=== PATIENT | female | born 1975 | race Caucasian/White ===

== ENCOUNTER 2016-06-22 15:26 | Inpatient (IN) | payer OTHER ==
--- NOTE | ~2016-06-22 | PN ---
Unit #: [id number] #: [id number] Patient: OBED ABERNATHY [id number] [facility] [address] [place] [address] [id number] MR#: [id number] NAME: OBED ABERNATHY. ROOM: P122 Age: 40 Sex: F Admission Date: 06/22/2016 : 1975 Attending Physician: Sammi Downs M.D. Admitting Physician: Sammi Downs M.D. Primary Care Physician: Generic Doctor Not In System [facility] PROGRESS NOTES DATE 06/24/2016 DISCUSSION Ms. Abernathy is a 40-year-old white female with mood disorder and psychosis who was seen today and chart was reviewed and case was discussed with the staff. She has been anxious, withdrawn though has not shown any agitation, irritability and has been cooperative with treatment recommendations and has been taking medications and tolerating them fairly well with no reported side effects. MENTAL STATUS EXAMINATION Young white female who was casually dressed with fair personal hygiene and appears to be in no acute distress or discomfort. She was awake and alert on interaction with intact orientation. Her mood was anxious with congruent affect. She denies any suicidal or homicidal ideations. Her insight and judgement remains slightly impaired. TREATMENT PLAN 1. Will continue on current medications and treatment protocol. Will monitor her response to the medication and make further adjustments as needed. 2. Will continue to follow up. Dictated by... Sammi Downs M.D. IAA/giovana TD: 06/25/2016 22:38 JOB #: [id number] Unit #: [id number] #: [id number] Patient: OBED ABERNATHY [facility] PROGRESS NOTES X Sammi Downs MD X PROGRESS NOTE
--- NOTE | ~2016-06-22 | HP ---
Unit #: [id number] #: [id number] Patient: OBED EUBANKS [id number] [place] [address] [id number] I MR#: [id number] NAME: OBED EUBANKS. ROOM: [facility] Age: 40 Sex: F Admission Date: 06/22/2016 : 1975 Attending Physician: Sammi Downs M.D. Admitting Physician: Sammi Downs M.D. Primary Care Physician: Generic Doctor Not In System HISTORY AND PHYSICAL HISTORY OF PRESENT ILLNESS The patient is a 40-year-old female admitted to [address] [place] [address] on 06/22/2016 for psychotic behavior. PAST MEDICAL HISTORY Chronic obstructive pulmonary disease PAST SURGICAL HISTORY 1. Appendectomy 2. Bilateral tubal ligation SOCIAL HISTORY The patient lives with her . She refused to answer questions about alcohol, tobacco and drug use. FAMILY MEDICAL HISTORY Noncontributory. ALLERGIES Shell fish and iodine. CURRENT MEDICATIONS Zyprexa REVIEW OF SYSTEMS CONSTITUTIONAL: No fever or chills. HEENT: Denies any sore throat, ear pain or runny nose. CARDIOVASCULAR: Denies chest pain, irregular heart rhythm or palpitations. CHEST: Denies shortness of breath or cough. No hemoptysis. GASTROINTESTINAL: Denies nausea, vomiting, diarrhea or chronic constipation. ENDOCRINE: Denies history of increased thirst or urination. No recent significant weight loss or gain. GENITOURINARY: Denies dysuria, frequency, or hematuria. SKIN: Denies any rashes. HEMATOLOGIC: Denies history of increased bleeding or bruising. MUSCULOSKELETAL: Denies any hot, swollen joints. No generalized muscle pain. NEUROLOGIC: Denies problems with vision or speech. No frequent, severe headaches. No numbness, tingling or weakness in any extremities. Denies loss of bladder or bowel control. Unit #: [id number] #: [id number] Patient: OBED EUBANKS PHYSICAL EXAM GENERAL: She is awake, alert and oriented in no acute distress. VITAL SIGNS: Temperature 97.0, heart rate 90, respiration 18, blood pressure 142/90. HEIGHT: 5'3". WEIGHT: 150 pounds. SKIN: Warm and dry without rash or lesion. HEENT: Normocephalic. TMs not viewed. Oral and nasal passages clear. Conjunctivae clear. PERRLA. EOMs intact. NECK: Supple without lymphadenopathy or thyromegaly. HEART: Regular rate and rhythm without murmur. PULMONARY: Wheezing in all lung beaver. ABDOMEN: Soft, nontender. : Not done. EXTREMITIES: No evidence of cyanosis, clubbing or edema. Moves all without focal deficit. NEUROLOGICAL: Grossly within normal limits. Cranial Nerves: II: Visual beaver are intact. III, IV AND : Extraocular movements are intact. Pupils are equal, round and reactive to light. V: Facial sensation is grossly normal. VII: Facial movements and expression are normal. VIII: Auditory acuity grossly intact. IX, X: Uvula is midline. Phonation is normal. XI: Patient shrugs shoulders and turns head normally. XII: Tongue protrudes in the midline. Sensory and Motor Function: Sensory and motor sensation is grossly normal. Motor: moves all extremities well. IMPRESSION 1. Psychiatric admission. 2. Chronic obstructive pulmonary disease. RECOMMENDATIONS Psychiatric per psychiatrist. MEDICAL: No contraindication to participate in facility activities. MEDICAL PROGNOSIS Good. MEDICAL CONDITION Stable. Dictated by... Brad Martin/magdalena TD: 06/23/2016 02:18 JOB #: [id number] Unit #: [id number] #: [id number] Patient: OBED EUBANKS HISTORY AND PHYSICAL X DUSTIN ROSS APRN HISTORY AND PHYSICAL
--- NOTE | ~2016-06-22 | PN ---
Unit #: [id number] #: [id number] Patient: OBED ABERNATHY [id number] [facility] [address] [place] [address] [id number] MR#: [id number] NAME: OBED ABERNATHY. ROOM: P122 Age: 40 Sex: F Admission Date: 06/22/2016 : 1975 Attending Physician: Sammi Downs M.D. Admitting Physician: Sammi Downs M.D. Primary Care Physician: Generic Doctor Not In System [facility] PROGRESS NOTES DATE OF SERVICE 06/25/2016 DISCUSSION Ms. Abernathy is a 40-year-old white female who was seen today. Chart was reviewed and case was discussed with the staff. She has been anxious and withdrawn though has not shown any agitation or irritability and has been cooperative with treatment recommendations though has been exhibiting persistent psychosis with bizarre behavior and significant thought-blocking. MENTAL STATUS EXAMINATION Young white male who is casually dressed with fair personal hygiene, appears to be in no acute distress or discomfort. The patient was awake and alert on interaction with intact orientation. Her mood is anxious with congruent affect. She denies any suicidal or homicidal ideations and also denies any auditory or visual hallucinations. Her insight and judgment remain slightly impaired. TREATMENT PLAN 1. We will continue her on her current medications and treatment protocol. We will monitor her response to the medications and make further adjustments as needed. 2. We will continue to follow up. Dictated by... Sammi Downs M.D. IAA/bzg TD: 06/26/2016 12:54 JOB #: [id number] Unit #: [id number] #: [id number] Patient: OBED ABERNATHY [facility] PROGRESS NOTES X Sammi Downs MD PROGRESS NOTE
--- NOTE | ~2016-06-22 | PN ---
Unit #: [id number] #: [id number] Patient: OBED ABERNATHY [id number] [facility] [address] [place] [address] [id number] I MR#: [id number] NAME: OBED ABERNATHY. ROOM: P122 Age: 40 Sex: F Admission Date: 06/22/2016 : 1975 Attending Physician: Sammi Downs M.D. Admitting Physician: Sammi Downs M.D. Primary Care Physician: Orville Doctor Not In System [facility] PROGRESS NOTES DATE 06/26/2016 DISCUSSION Ms. Abernathy is a 40-year-old white female who was seen today and chart was reviewed and case was discussed with the staff. She has been anxious, withdrawn though has not shown any agitation, irritability or behavioral problems and has been cooperative with treatment recommendations. She has been taking medications and tolerating them fairly well with no reported side effects. MENTAL STATUS EXAMINATION Young white female who was casually dressed with fair personal hygiene, appears to be in no acute distress or discomfort. She was awake and alert on interaction with intact orientation. Her mood was anxious with congruent affect. She denies any suicidal or homicidal ideations. Her insight and judgement remains slightly impaired. TREATMENT PLAN 1. We will continue her on her current medications and treatment protocol. We will monitor her response to the medication and make further adjustments as needed. 2. We will continue to follow up. Dictated by... Jacoby Saldivar/magdalena TD: 06/27/2016 00:52 JOB #: [id number] Unit #: [id number] #: [id number] Patient: OBED ABERNATHY [facility] PROGRESS NOTES X Sammi Downs MD PROGRESS NOTE
--- NOTE | ~2016-06-22 | PN ---
Unit #: [id number] #: [id number] Patient: OBED ABERNATHY [id number] [facility] [address] [place] [address] [id number] MR#: [id number] NAME: OBED ABERNATHY. ROOM: P122 Age: 40 Sex: F Admission Date: 06/22/2016 : 1975 Attending Physician: Sammi Downs M.D. Admitting Physician: Sammi Downs M.D. Primary Care Physician: Orville Doctor Not In System [facility] PROGRESS NOTES DATE 06/29/2016 DISCUSSION Ms. Abernathy is a 40-year-old white female who was seen today and chart was reviewed and case was discussed with the staff who report the patient has been anxious, withdrawn, disorganized and seclusive to herself with bizarre behavior and thought blocking and persistent paranoia though she has not shown any agitation or aggression. Meanwhile, she has been taking medications and tolerating them fairly well. MENTAL STATUS EXAMINATION Young white female who was casually dressed with fair personal hygiene, appears to be in no acute distress or discomfort. She was awake and alert on interaction with intact orientation. Her mood was anxious with congruent affect. Her speech was slow and restricted in content. Her thought processes were disorganized with some looseness of associations and paranoid ideations and thought blocking. Her insight and judgement remains significantly impaired. TREATMENT PLAN 1. We will continue her on her current medications and treatment protocol. We will monitor her response to the medication and make further adjustments as needed. 2. We will continue to follow up. Dictated by... Jacoby Saldivar/magdalena TD: 07/01/2016 03:29 JOB #: [id number] Unit #: [id number] #: [id number] Patient: OBED ABERNATHY [facility] PROGRESS NOTES X Sammi Downs MD PROGRESS NOTE
--- NOTE | ~2016-06-22 | PA ---
Unit #: [id number] #: [id number] Patient: OBED ABERNATHY [id number] [facility] [address] [place] [address] [id number] I MR#: [id number] NAME: OBED ABERNATHY. ROOM: [facility] Age: 40 Sex: F Admission Date: 06/22/2016 : 1975 Date of Assessment: Attending Physician: Sammi Downs M.D. Admitting Physician: Sammi Downs M.D. Primary Care Physician: Generic Doctor Not In System PSYCHIATRIC ASSESSMENT DATE OF SERVICE 06/22/2016. IDENTIFYING DATA Ms. Abernathy is a 40-year-old single white female, who is a resident of [place], [place], and was transferred to from [facility]. CHIEF COMPLAINT "I've not been doing good." HISTORY OF PRESENT ILLNESS Ms. Abernathy is a 40-year-old white female with a history of chronic mental illness, who is known to me from previous encounter and was transferred to us from [facility] Emergency Room, where she presented with acute psychosis as noticed by the ER physician and was placed on 72 hours hold. On 06/22/2016, the patient refused to cooperate with assessment and informed the bull rider that she would only give the bull rider a positive answer to the questions that were asked and the patient then responded with "nope" when the bull rider inquired about suicidal ideation and also responded about previously being at [facility] and the patient informed the bull rider that she was there under my care and the bull rider tried to ask condition of assessment question, but the patient was seen to be very guarded and paranoid and delusional and the ER doctor reported that she has been rambling since admitted to the hospital and that she has been completely out of touch with reality and her responses do not match with the questions that are asked, and when asked about any symptoms, the patient will give irrelevant information and the patient was alert and awake, and her drug screen was positive for marijuana with no other drugs being present and was seen to be acutely psychotic and danger to self and others and as such, a recommendation for inpatient level of care was made and the patient was medically cleared and then was transferred to us. SUBSTANCE ABUSE HISTORY The patient reports a history of cannabis abuse, but denies any other drug abuse. PAST PSYCHIATRIC HISTORY The patient has had a history of inpatient psychiatric hospitalization at [facility] and has been diagnosed and treated with schizoaffective disorder. Review of the medical records indicate that she is supposed to be on Zyprexa, but apparently has been noncompliant with the medication and as such, has been decompensating. Unit #: [id number] #: [id number] Patient: OBED ABERNATHY PAST MEDICAL HISTORY The patient's medical history is significant for COPD and scoliosis. ALLERGIES Iodine. PERSONAL AND SOCIAL HISTORY A 40-year-old white female, who reports that she is and lives at home with her and has fairly decent social support system. MENTAL STATUS EXAMINATION Young white female, who was casually dressed with marginal personal hygiene, appears to be in no acute distress or discomfort. She was awake and alert on interaction with intact orientation to time, place, and person. Her mood was anxious and depressed with a congruent affect. Her speech was slow and restricted in content. Her thought processes were disorganized with some looseness of associations and paranoid ideations. Her insight and judgment remain significantly impaired. DIAGNOSTIC IMPRESSION Psychiatric: Schizoaffective disorder, bipolar type, most recent episode depressed, recurrent, moderate, with psychosis. Medical: Scoliosis and chronic obstructive pulmonary disease. Stressors: Moderate psychosocial stressors. TREATMENT PLAN 1. The patient has presented with a history of substance abuse and mood disorder and has been decompensating and will need inpatient hospitalization for safety and stabilization. We will start her back on her home medications and we will adjust the medications and monitor response. 2. Supportive therapy was provided to the patient. 3. Safe, structured, and nourishing environment will be provided. ESTIMATED LENGTH OF STAY 4 to 5 days. ABILITY TO HELP SELF Limited. WILLINGNESS TO HELP SELF The patient appears to be willing to help self. STRENGTHS 1. Communicative. 2. Cooperative. PROBLEMS 1. Chronic dysphoric symptoms. 2. Chronic chemical dependency. 3. Poor social support system. DISCHARGE CRITERIA This will be contingent upon the patient's ability to show resolution of her depression and psychosis and her ability to stay safe to herself and others, particularly after discharge from the hospital. Unit #: [id number] #: [id number] Patient: ABERNATHYOBED D Dictated by..Celsa Downs M.D. LAMAR/kinga TD: 06/23/2016 10:29 JOB #: [id number] PSYCHIATRIC ASSESSMENT X Sammi Downs MD PSYCHIATRIC ASSESSMENT
--- NOTE | ~2016-06-22 | DS ---
Unit #: [id number] #: [id number] [facility] [id number] [facility] [address] [place] [address] [id number] I MR#: [id number] NAME: OBED ABERNATHY. ROOM: [facility] Age: 40 Sex: F Admission Date: 06/22/2016 : 1975 Discharge Date: 07/01/2016 Attending Physician: Sammi Downs M.D. Primary Care Physician: Generic Doctor Not In System DISCHARGE SUMMARY IDENTIFYING DATA Ms. Abernathy is a 40-year-old single white female who is resident of [place], [place] and was transferred to from [facility]. DISCHARGE DIAGNOSES Psychiatric: Schizoaffective disorder, bipolar type, most recent episode depressed, recurrent, moderate, with psychosis. Medical: Scoliosis, chronic obstructive pulmonary disease. Stressors: Moderate psychosocial stressors. HISTORY OF PRESENT ILLNESS Please see initial psychiatric evaluation for details. PAST PSYCHIATRIC HISTORY Please see initial psychiatric evaluation for details. PAST MEDICAL HISTORY Please see initial psychiatric evaluation for details. HOSPITAL COURSE The patient was admitted to the adult psychiatric unit at [facility] and was oriented to the hospital environment. Routine p.r.n. medications were initiated, and she was started back on her home medications and medications were adjusted and she was started back on her home medication from previous medical records particularly her Zyprexa and the dosage was increased to 20 mg a day with good tolerability and therapeutic response followed by which, it was decided that she will be discharged home and will continue treatment on an outpatient basis. DISCHARGE MEDICATIONS Zyprexa 20 mg at bedtime for depression. DISCHARGE CONDITION Stable. PROGNOSIS Fair. Dictated by... Sammi Downs M.D. IAA/modl Unit #: [id number] #: [id number] Patient: OBED ABERANTHY TD: 07/01/2016 22:35 JOB #: [id number] DISCHARGE SUMMARY X Sammi Downs MD X DISCHARGE SUMMARY
--- NOTE | ~2016-06-22 | PN ---
Unit #: [id number] #: [id number] Patient: OBED ABERNATHY [id number] [facility] [address] [place] [address] [id number] I MR#: [id number] NAME: OBED ABERNATHY. ROOM: P122 Age: 40 Sex: F Admission Date: 06/22/2016 : 1975 Attending Physician: Sammi Downs M.D. Admitting Physician: Sammi Downs M.D. Primary Care Physician: Orville Doctor Not In System [facility] PROGRESS NOTES DATE OF SERVICE: 06/30/2016 SUBJECTIVE Ms. Abernathy is a 40-year-old white female who was seen today and chart was reviewed, and case was discussed with the staff. She has been anxious, withdrawn, disorganized with bizarre behavior and rather very seclusive to herself. Meanwhile, she has been taking medications and tolerating them fairly well with no reported side effects. MENTAL STATUS EXAMINATION Young white female who was casually dressed with fair personal hygiene, appears to be in no acute distress or discomfort. She was awake and alert on interaction with intact orientation. Her mood was anxious with a congruent affect. She denies any suicidal or homicidal ideations, and also denies any auditory or visual hallucinations. Her insight and judgment remain slightly impaired. TREATMENT PLAN 1. We will continue on her current medications and treatment protocol. We will monitor her response to medications and make further adjustments as needed. 2. We will continue to follow up. Dictated by... Jacoby Saldivar/kinga TD: 07/01/2016 02:27 JOB #: [id number] [facility] PROGRESS NOTES X Sammi Downs MD PROGRESS NOTE
--- NOTE | ~2016-06-22 | PN ---
Unit #: [id number] #: [id number] Patient: OBED ABERNATHY [id number] [facility] [address] [place] [address] [id number] MR#: [id number] NAME: OBED ABERNATHY. ROOM: P122 Age: 40 Sex: F Admission Date: 06/22/2016 : 1975 Attending Physician: Sammi Downs M.D. Admitting Physician: Sammi Downs M.D. Primary Care Physician: Orville Doctor Not In System [facility] PROGRESS NOTES DATE 06/27/2016 DISCUSSION Ms. Abernathy is a 40-year-old white female who was seen today and chart was reviewed and case was discussed with the staff. She has been anxious, withdrawn, disorganized and seclusive to herself with blunted affect, minimal interaction and poor eye contact. Meanwhile, she has been taking medications and tolerating them fairly well with no reported side effects. MENTAL STATUS EXAMINATION Young white female who was casually dressed with fair personal hygiene and appears to be in no acute distress or discomfort. She was awake and alert with impaired attention and concentration. Her mood was anxious with congruent affect. Her speech is slow and restricted in content. Her thought processes were disorganized with some looseness of associations and paranoid ideations and delusional behavior. Her insight and judgement remains significantly impaired. TREATMENT PLAN 1. Will continue on current medications and treatment protocol. Will monitor her response and make further adjustments as needed. 2. We will continue to follow up. Dictated by... Jacoby Saldivar/giovana TD: 06/27/2016 17:48 JOB #: [id number] Unit #: [id number] #: [id number] Patient: OBED ABERNATHY [facility] PROGRESS NOTES X Sammi Downs MD PROGRESS NOTE
--- NOTE | ~2016-06-22 | PN ---
Unit #: [id number] #: [id number] Patient: OBED ABERNAHTY [id number] [facility] [address] [place] [address] [id number] MR#: [id number] NAME: OBED ABERNATHY. ROOM: P122 Age: 40 Sex: F Admission Date: 06/22/2016 : 1975 Attending Physician: Sammi Downs M.D. Admitting Physician: Sammi Downs M.D. Primary Care Physician: Orville Doctor Not In System [facility] PROGRESS NOTES DATE June 23, 2016 DISCUSSION Ms. Abernathy is a 40-year-old white female, who was seen today and chart was reviewed and the case was discussed with the staff. The patient has been anxious, withdrawn, but has not shown any agitation, or irritability and has been cooperative with the treatment recommendations. He has been taking the medications and tolerating them fairly well with no reported side effects. MENTAL STATUS EXAMINATION Young white female, who was casually dressed with fair personal hygiene and appears to be in no acute distress or discomfort. The patient was awake and alert with impaired attention and concentration. Her mood was anxious with a congruent affect. Her speech is slow and restricted in content. Her thought processes are disorganized with some looseness of associations and paranoid ideations. Her insight and judgment remain significantly impaired. TREATMENT PLAN 1. We will continue her on her current medications and treatment protocol, and will monitor her response to the medications, and make further adjustments as needed. 2. We will continue to followup. Dictated by... Jacoby Saldivar/fareed TD: 06/25/2016 05:10 JOB #: [id number] Unit #: [id number] #: [id number] Patient: OBED ABERNATHY [facility] PROGRESS NOTES X Sammi Downs MD PROGRESS NOTE
--- NOTE | ~2016-06-22 | PN ---
Unit #: [id number] #: [id number] Patient: OBED ABERNATHY [id number] [facility] [address] [place] [address] [id number] MR#: [id number] NAME: OBED ABERNATHY. ROOM: P122 Age: 40 Sex: F Admission Date: 06/22/2016 : 1975 Attending Physician: Sammi Downs M.D. Admitting Physician: Jacoby Saldivar PROGRESS NOTES DATE OF SERVICE: 06/28/2016 SUBJECTIVE Ms. Abernathy is a 40-year-old white female who was seen today and chart was reviewed, and case was discussed with the staff. She has been doing fairly well with no agitation, irritability, and has been seclusive to herself with bizarre behavior and disorganized thoughts and speech. Meanwhile, she has been taking the medications and tolerating them fairly well. MENTAL STATUS EXAMINATION Young white female who was casually dressed with fair personal hygiene, appears to be in no acute distress or discomfort. She was awake and alert with impaired attention and concentration. Her mood was anxious with a congruent affect. Her speech was slow and restricted in content. Her thought processes were disorganized with some looseness of associations. Her insight and judgment remain significantly impaired. TREATMENT PLAN 1. We will continue on her current medications and treatment protocol. We will monitor her response and make further adjustments as needed. 2. We will continue to follow up. Dictated by... Jacoby Saldivar/kinga TD: 06/28/2016 13:23 JOB #: [id number] [facility] PROGRESS NOTES X Sammi Downs MD PROGRESS NOTE
[~2016-06-22 15:26] MED LIST: ALBUTEROL17 GM INH; AMOXICILLIN PO; AMOXICILLIN500 M1 PO; AURODEX EAR DRO15 ML OT; BACITRACIN3.5 G1 OP; CIPRODEX OTIC7.5 ML OT; COLY-MYCIN S EAR5 ML AS; ERYTHROMYCIN O3.5 GM OD; FLEXERIL PO; FLEXERIL10 MG PO; IBUPROFEN PO; KEFLEX500 M1 PO; LORTAB 7.5-5001 TAB PO; MEDROL PO; MOBIC PO; NASONEX17 GM; PAXIL PO; PHENERGAN12.5 MG/SU RC; PREDNISONE PO; ROBAXIN; VIBRAMYCIN100 M1 PO; VICODIN 5/500 T1 TAB PO; VISTARIL50 MG PO; ZANTAC PO; ZANTAC150 MG PO; ZYPREXA PO
[2016-06-23 09:49] LABS: BASOPHIL# 0.1 X10e3 (0-0.3); BASOPHIL% 0.9 % (0-2.5); EOSINOPHIL# 0.3 X10e3 (0-0.7); EOSINOPHIL% 3.5 % (0.0-7.0); HEMATOCRIT 38.4 % (35.0-45.0); HEMOGLOBIN 12.1 gm/dL (12.0-16.0); LYMPHOCYTE% 24.5 % (17.0-45.0); MEAN CELL VOLUME 80.5 FL (83-96); MEAN CORPUSCULAR HEMOGLOBIN 25.4 PG (28-34); MEAN CORPUSCULAR HGB CONC 31.6 g/dL (30-36); MEAN PLATELET VOLUME 10.2 FL (6.5-11.5); MONOCYTE# 0.7 X10e3 (0-1.0); MONOCYTE% 8.8 % (3.0-12.0); NEUTROPHIL# 5.1 X10e3 (1.5-7.1); NEUTROPHIL% 62.3 % (40-75); PLATELET COUNT 247 X10e3 (140-420); RED BLOOD COUNT 4.77 X10e (3.90-5.30); WHITE BLOOD COUNT 8.1 X10e3 (4.0-10.5)
[2016-06-23 09:51] LABS: ALBUMIN SERUM 3.6 g/dL (3.5-5.0); ALKALINE PHOSPHATASE 51 U/L (32-92); ALT (SGPT) 16 U/L (10-40); AST (SGOT) 18 U/L (10-42); BILIRUBIN,TOTAL 0.5 mg/dL (0.2-2.0); BLOOD UREA NITROGEN 9 mg/dL (9-23); CALCIUM SERUM 8.7 mg/dL (8.4-10.2); CARBON DIOXIDE 25 mmol/L (22-31); CHLORIDE 106 mmol/L (100-111); CREATININE SERUM 0.6 mg/dL (0.6-1.4); DIFF IND NO; GLOM FILT RATE Estimated ABOVE60 mL/min (>60); GLUCOSE FASTING 91 mg/dL (70-110); POTASSIUM 4.1 mmol/L (3.5-5.1); PROTEIN TOTAL SERUM 6.1 g/dL (6.0-8.3); SODIUM 137 mmol/L (135-145)
== END 2016-07-01 15:15 | disposition home or self-care (01) | DRG 885 ==
LOC: P1S 15:26
PROVIDERS: Psychiatry & Neurology Psychiatry
DX: F25.0 Schizoaffective disorder, bipolar type (principal); F31.32 Bipolar disorder, current episode depressed, moderate; F29 Unspecified psychosis not due to a substance or known physiological condition; M41.9 Scoliosis, unspecified; J44.9 Chronic obstructive pulmonary disease, unspecified
CPT/HCPCS: 80053; 85025

== ENCOUNTER 2016-10-01 01:08 | Emergency (ER) | payer OTHER ==
[2016-10-01] MEDS ORDERED: BREO ELLIPTA 11 EACH INH (01:20)
[2016-10-01] MEDS ORDERED: ACID REFLUX (01:20)
[2016-10-01] MEDS ORDERED: ZYPREXA PO (01:21)
[2016-10-01] MEDS ORDERED: ALBUTEROL17 GM INH (01:21)
== END 2016-10-01 01:59 | disposition home or self-care (01) ==
LOC: SED 01:08
DX: S09.90XA Unspecified injury of head, initial encounter (principal); S16.1XXA Strain of muscle, fascia and tendon at neck level, initial encounter; F17.200 Nicotine dependence, unspecified, uncomplicated; Z88.8 Allergy status to other drugs, medicaments and biological substances; Z79.899 Other long term (current) drug therapy; X58.XXXA Exposure to other specified factors, initial encounter; Y92.89 Other specified places as the place of occurrence of the external cause
CPT/HCPCS: 99283

== ENCOUNTER 2016-10-14 23:00 | Inpatient (IN) | payer OTHER ==
--- NOTE | ~2016-10-14 | PN ---
Unit #: [id number] #: [id number] Patient: OBED EUBANKS [id number] [facility] [address] [place] [address] [id number] MR#: [id number] NAME: OBED EUBANKS. ROOM: P131 Age: 41 Sex: F Admission Date: 10/15/2016 : 1975 Attending Physician: Sammi Downs M.D. Admitting Physician: Sammi Downs M.D. Primary Care Physician: Primary Care Physician Lyly BELLE NOTES DATE 10/19/2016 DISCUSSION Ms. Eubanks is a 41-year-old white female who was seen today and chart was reviewed and case was discussed with the staff. She has been anxious, withdrawn and rather seclusive to herself and has been exhibiting some persistent depressive symptoms. Meanwhile, she has been talking medications and tolerating them fairly well with no reported side effects. MENTAL STATUS EXAMINATION Middle-aged white female who was casually dressed with fair personal hygiene, appears to be in no acute distress or discomfort. She was awake and alert on interaction with intact orientation. Her mood was anxious with congruent affect. She denies any suicidal or homicidal ideations. Her insight and judgement remains slightly impaired. TREATMENT PLAN 1. We will continue her on her current medications and treatment protocol. We will monitor her response to the medication and make further adjustments as needed. 2. We will continue to follow up. Dictated by... Jacoby Saldivar/magdalena TD: 10/22/2016 01:02 JOB #: [id number] Unit #: [id number] #: [id number] Patient: OBED EUBANKS HECTOR PROGRESS NOTES Page 1 of 1 X Sammi Downs MD PROGRESS NOTE
--- NOTE | ~2016-10-14 | PN ---
Unit #: [id number] #: [id number] Patient: OBED EUBANKS [id number] [facility] [address] [place] [address] [id number] I MR#: [id number] NAME: OBED EUBANKS. ROOM: P131 Age: 41 Sex: F Admission Date: 10/15/2016 : 1975 Attending Physician: Sammi Downs M.D. Admitting Physician: Sammi Downs M.D. Primary Care Physician: Primary Care Physician Lyly BELLE NOTES DATE 10/21/2016 DISCUSSION Ms. Eubanks is a 41-year-old white female with mood disorder and psychosis who was seen today and chart was reviewed and case was discussed with the staff. She remains anxious, withdrawn, depressed and rather seclusive to herself. Meanwhile, she has been cooperative with treatment recommendations and has been taking medications and tolerating them fairly well with no reported side effects. MENTAL STATUS EXAMINATION Middle-aged white female who was casually dressed with fair personal hygiene and appears to be in no acute distress or discomfort. She was awake and alert on interaction with intact orientation. Her mood was anxious and depressed with congruent affect. She denies any current suicidal or homicidal ideation and also denies any auditory or visual hallucinations. Her insight and judgement remains slightly impaired. TREATMENT PLAN 1. Will continue on current medications and treatment protocol and will monitor response and make further adjustments as needed. 2. Will continue to follow up. Dictated by... Jacoby Saldivar/giovana TD: 10/22/2016 18:01 JOB #: [id number] Unit #: [id number] #: [id number] Patient: OBED EBUANKS HECTOR BELLE NOTES Page 1 of 1 X Sammi Downs MD PROGRESS NOTE
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
--- NOTE | ~2016-10-14 | HP ---
Unit #: [id number] #: [id number] Patient: CRIS EUBANKS [id number] [place] [address] [id number] I MR#: [id number] NAME: CRIS EUBANKS. ROOM: 31 Age: 41 Sex: F Admission Date: 10/15/2016 : 1975 Attending Physician: Sammi Downs M.D. Admitting Physician: Sammi Downs M.D. Primary Care Physician: No Primary Care Physician HISTORY AND PHYSICAL HISTORY OF PRESENT ILLNESS Cris is a 41-year-old admitted to [address] [place] [address] with psychotic behavior. She is a poor historian so her history is taken from her chart. PAST MEDICAL HISTORY History of psychosis. PAST SURGICAL HISTORY 1. Appendectomy. 2. Tubal ligation. ALLERGIES No known drug allergies. SOCIAL HISTORY Smokes and drinks alcohol, but has no history of illicit substance abuse. FAMILY HISTORY Medically noncontributory. REVIEW OF SYSTEMS She does not answer questions appropriately. There are no reports of nausea, vomiting, or diarrhea. She has had no cough or increased temperature. CURRENT MEDICATIONS 1. Zyprexa 20 mg q.h.s. 2. Symbicort b.i.d. 3. Methocarbamol 500 mg t.i.d. 4. Nicotine patch 21 mg every day. 5. Milk of magnesia p.r.n. 6. Maalox p.r.n. 7. Tylenol p.r.n. PHYSICAL EXAMINATION GENERAL: Alert, well nourished, and in no apparent distress. VITAL SIGNS: Blood pressure 122/86, heart rate 80, respirations 16, temperature 98.6, weight 143 pounds, and height 5 feet, 2 inches. SKIN: Warm and dry without rash or lesion. HEENT: Normocephalic. TMs not viewed. Oral and nasal passages clear. Conjunctivae clear. PERRLA. EOMs intact. NECK: Supple without lymphadenopathy or thyromegaly. HEART: Regular rate and rhythm without murmur. Unit #: [id number] #: [id number] Patient: CRIS EUBANKS LUNGS: Clear. ABDOMEN: Soft, nontender. : Not done. EXTREMITIES: No evidence of cyanosis, clubbing or edema. Moves all without focal deficit. NEUROLOGICAL: Unable to complete extended exam. She does move all extremities without focal deficit. Hand electrophysiology scientist is equal and gait is normal. IMPRESSION Psychiatric admission. RECOMMENDATIONS PSYCHIATRIC: Per psychiatrist. MEDICAL: I see no contraindication to participating in facility's activities. MEDICAL PROGNOSIS Good. MEDICAL CONDITION Stable. Dictated by... Yaneth Colin P.A.-C. for Jacoby Solis/tara TD: 10/16/2016 09:51 JOB #: [id number] HISTORY AND PHYSICAL Page 1 of 1 X Yaneth Colin X HISTORY AND PHYSICAL
--- NOTE | ~2016-10-14 | PN ---
Unit #: [id number] #: [id number] Patient: OBED EUBANKS [id number] [facility] [address] [place] [address] [id number] I MR#: [id number] NAME: OBED EUBANKS. ROOM: P131 Age: 41 Sex: F Admission Date: 10/15/2016 : 1975 Attending Physician: Sammi Downs M.D. Admitting Physician: Sammi Downs M.D. Primary Care Physician: Primary Care Physician Lyly BELLE NOTES DATE OF SERVICE: 10/20/2016 SUBJECTIVE The patient is a 41-year-old white female, who was seen today and chart was reviewed, case was discussed with the staff. She has been anxious, withdrawn, and rather seclusive to herself. Meanwhile, she has been cooperative with treatment recommendations and has been taking medications and tolerating them fairly well with no reported side effects. MENTAL STATUS EXAMINATION Middle-aged white female, who was casually dressed with fair personal hygiene, appears to be in no acute distress or discomfort. She was awake and alert on interaction with intact orientation. Her mood anxious with a congruent affect. She denies any suicidal or homicidal ideations. Her insight and judgment remain slightly impaired. TREATMENT PLAN 1. We will continue on her current medications and treatment protocol. We will monitor her response to medications and make further adjustments as needed. 2. We will continue to follow up. Dictated by... Jacoby Saldivar/kinga TD: 10/20/2016 18:03 JOB #: [id number] HECTOR BELLE NOTES Page 1 of 1 X Sammi Downs MD PROGRESS NOTE
--- NOTE | ~2016-10-14 | PN ---
Unit #: [id number] #: [id number] Patient: OBED EUBANKS [id number] [facility] [address] [place] [address] [id number] I MR#: [id number] NAME: OBED EUBANKS. ROOM: P131 Age: 41 Sex: F Admission Date: 10/15/2016 : 1975 Attending Physician: Sammi Downs M.D. Admitting Physician: Sammi Downs M.D. Primary Care Physician: Primary Care Physician Lyly YOUNG PROGRESS NOTES DATE October 18, 2016 DISCUSSION Ms. Eubanks is a 41-year-old white female, who was seen today and chart was reviewed and the case was discussed with the staff. The patient has been anxious, withdrawn, and rather seclusive to himself. Once again she was seen to be unable to carry on much conversation at all and has been exhibiting significant thought blocking and she has been taking the medications and tolerating them fairly well without side effects. MENTAL STATUS EXAMINATION Middle-aged white female, who was casually dressed with fair personal hygiene and appears to be in no acute distress or discomfort. She was awake and alert on interaction with intact orientation. Her mood is anxious with a congruent affect. Her speech is slow and goal-directed. She denies any suicidal or homicidal ideations. Her insight and judgment remain slightly impaired. TREATMENT PLAN 1. We will continue her on her current medications and treatment protocol, and will monitor her response to the medications, and make further adjustments as needed. 2. We will continue to followup. Dictated by... Jacoby Saldivar/fareed TD: 10/20/2016 07:50 JOB #: [id number] Unit #: [id number] #: [id number] Patient: OBED EUBANKS HECTOR PROGRESS NOTES Page 1 of 1 X Sammi Downs MD PROGRESS NOTE
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
--- NOTE | ~2016-10-14 | CO ---
Unit #: [id number] #: [id number] Patient: CRIS EUBANKS [id number] [place] [address] [id number] I MR#: [id number] NAME: CRIS EUBANKS. ROOM: [facility] Age: 41 Sex: F Admission Date: 10/15/2016 : 1975 Attending Physician: Sammi Downs M.D. Primary Care Physician: Primary Care Physician No Consultation Date: 10/17/2016 CONSULTATION REPORT SUBJECTIVE Cris is a 41-year-old with an abnormal urinalysis. She has no complaints. Admission urinalysis showed 1+ bacteria. We started her on Bactrim DS one p.o. b.i.d. x3 days. Dictated by... Yaneth Colin P.A.-C. for Jacoby Solis/kinga TD: 10/21/2016 22:38 JOB #: [id number] CONSULTATION REPORT Page 1 of 1 X Yaneth Colin CONSULTATION REPORT
--- NOTE | ~2016-10-14 | PN ---
Unit #: [id number] #: [id number] Patient: OBED EUBANKS [id number] [facility] [address] [place] [address] [id number] MR#: [id number] NAME: OBED EUBANKS. ROOM: 31 Age: 41 Sex: F Admission Date: 10/15/2016 : 1975 Attending Physician: Sammi Downs M.D. Admitting Physician: Sammi Downs M.D. Primary Care Physician: Primary Care Physician Lyly BELLE NOTES DATE October 16, 2016 DISCUSSION Ms. Ebuanks is a 41-year-old white female, who was seen today and chart was reviewed and the case was discussed with the staff. The patient remains anxious, withdrawn, depressed, and very seclusive to herself, with blunted affect, minimal interaction, and poor eye contact. Meanwhile, she has been taking medications and tolerating them fairly well with no reported side effects. MENTAL STATUS EXAMINATION Middle-aged white female, who was casually dressed with fair personal hygiene and appears to be in no acute distress or discomfort. She was awake and alert on interaction with intact orientation. Her mood was anxious with a congruent affect. The patient denies any suicidal or homicidal ideations. Her insight and judgment remain slightly impaired. TREATMENT PLAN 1. We will continue her on her current medications and treatment protocol, and will monitor her response, and make further adjustments as needed. 2. We will continue to followup. Dictated by... Jacoby Saldivar/fareed TD: 10/17/2016 09:05 JOB #: [id number] Unit #: [id number] #: [id number] Patient: OBED EUBANKS HECTOR PROGRESS NOTES Page 1 of 1 X Sammi Downs MD PROGRESS NOTE
--- NOTE | ~2016-10-14 | PN ---
Unit #: [id number] #: [id number] Patient: OBED EUBANKS [id number] [facility] [address] [place] [address] [id number] I MR#: [id number] NAME: OBED EUBANKS. ROOM: 31 Age: 41 Sex: F Admission Date: 10/15/2016 : 1975 Attending Physician: Sammi Downs M.D. Admitting Physician: Sammi Downs M.D. Primary Care Physician: Primary Care Physician Lyly BELLE NOTES DATE 10/17/2016 DISCUSSION Ms. Eubanks is a 41-year-old white female with mood disorder who was seen today and chart was reviewed and case was discussed with the staff. She has been anxious, withdrawn and rather seclusive to herself. Meanwhile, she has been cooperative with treatment recommendations as she has been taking the medications and tolerating them fairly well with no reported side effects. MENTAL STATUS EXAMINATION Middle-aged white female who was casually dressed with fair personal hygiene, appears to be in no acute distress or discomfort. She was awake and alert on interaction with intact orientation. Her mood was anxious with congruent affect. Her speech was slow and restricted in content. She denies any suicidal or homicidal ideations. Her insight and judgement remains slightly impaired. TREATMENT PLAN 1. We will continue her on her current medications and treatment protocol. We will monitor her response to the medication and make further adjustments as needed. 2. We will continue to follow up. Dictated by... Jacoby Saldivar/magdalena TD: 10/20/2016 02:30 JOB #: [id number] Unit #: [id number] #: [id number] Patient: OBED EUBANKS HECTOR PROGRESS NOTES Page 1 of 1 X Sammi Downs MD PROGRESS NOTE
[~2016-10-14 23:00] MED LIST changes: +ACID REFLUX; +BREO ELLIPTA 11 EACH INH
[2016-10-15 09:39] LABS: BASOPHIL# 0.1 X10e3 (0-0.3); BASOPHIL% 0.9 % (0-2.5); EOSINOPHIL# 0.3 X10e3 (0-0.7); EOSINOPHIL% 2.5 % (0.0-7.0); HEMATOCRIT 34.9 % (35.0-45.0); HEMOGLOBIN 10.9 gm/dL (12.0-16.0); LYMPHOCYTE# 2.3 X10e3 (1.0-3.5); LYMPHOCYTE% 20.1 % (17.0-45.0); MEAN CELL VOLUME 80.4 FL (83-96); MEAN CORPUSCULAR HEMOGLOBIN 25.1 PG (28-34); MEAN CORPUSCULAR HGB CONC 31.3 g/dL (30-36); MEAN PLATELET VOLUME 10.4 FL (6.5-11.5); MONOCYTE# 0.8 X10e3 (0-1.0); MONOCYTE% 6.6 % (3.0-12.0); NEUTROPHIL# 8.1 X10e3 (1.5-7.1); NEUTROPHIL% 69.9 % (40-75); PLATELET COUNT 199 X10e3 (140-420); RED BLOOD COUNT 4.34 X10e (3.90-5.30); RED CELL DISTRIBUTION WIDTH 17.2 % (11.0-15.5); WHITE BLOOD COUNT 11.6 X10e3 (4.0-10.5)
[2016-10-15 09:41] LABS: DIFF IND NO
[2016-10-15 09:41] LABS: URINE APPEARANCE CLEAR; URINE BILIRUBIN NEG (NEG); URINE BLOOD NEG (NEG); URINE COLOR YELLOW; URINE GLUCOSE NEG (NEG); URINE KETONE 1+ (NEG); URINE LEUKOCYTE ESTERASE 2+ (NEG); URINE NITRATE NEG (NEG); URINE PROTEIN NEG (NEG); URINE SPECIFIC GRAVITY 1.017 (1.003-1.035)
[2016-10-15 09:45] LABS: U HYALINE CASTS AUWI 0-2 /[LPF]; URINE BACTERIA AUWI 1+ (NEGATIVE); URINE SQUAMOUS EPITHELIAL CELL FEW /[HPF]
[2016-10-15 10:07] LABS: AMPHETAMINE NEG (NEG); BARBITURATES NEG (NEG); BENZODIAZEPINES NEG (NEG); COCAINE NEG (NEG); MARIJUANA POS (NEG); OPIATES NEG (NEG); TRICYCLIC ANTIDEPRESSANTS NEG (NEG); U METHADONE NEG (NEG)
[2016-10-15 10:15] LABS: ALBUMIN SERUM 3.3 g/dL (3.5-5.0); BILIRUBIN,TOTAL 0.3 mg/dL (0.2-2.0); BUN/CREATININE RATIO 16.66; CALCIUM SERUM 8.6 mg/dL (8.4-10.2); CREATININE SERUM 0.6 mg/dL (0.6-1.4); POTASSIUM 3.8 mmol/L (3.5-5.1)
== END 2016-10-22 14:55 | disposition home or self-care (01) | DRG 885 ==
LOC: P1S 10-15 02:14
PROVIDERS: Psychiatry & Neurology Psychiatry
DX: F20.0 Paranoid schizophrenia (principal); M41.9 Scoliosis, unspecified; N39.0 Urinary tract infection, site not specified; J44.9 Chronic obstructive pulmonary disease, unspecified; Z98.51 Tubal ligation status; F17.210 Nicotine dependence, cigarettes, uncomplicated
CPT/HCPCS: 80053; 80307; 81003; 85025

== ENCOUNTER 2016-12-26 16:34 | Emergency (ER) | payer OTHER ==
[~2016-12-26] VITALS: Ht 160 cm; Wt 70.8 kg
--- NOTE | ~2016-12-26 | CT4 ---
[facility] A Service of [facility] & [facility] RADIOLOGY TEXT RESULTS PATIENT: OBED EUBANKS LOCATION: [facility] : [birth year] UNIT #: [id number] AGE: [address]: Nate Dale MD SEX: F ORDER DR: [id number] [facility] [address] [place], [place] [address] [id number] MR#: [id number] Acc #: [id number] NAME: OBED EUBANKS. : 1975 SEX: F STUDY DATE/TIME: 12/26/2016 17:14 UNIT: [facility] ROOM: STUDY DESCRIPTION: CT Abd and Pelv Wo Cont Attending Physician: Nate Dale M.D. Ordering Physician: Nate Dale M.D. Primary Care Physician: Vimal Villafuerte M.D. MEDICAL IMAGING REPORT This report is preliminary unless electronic signature is present EXAM CT of abdomen and pelvis. HISTORY Abdominal pain, unable to void for 2 days. Prior appendectomy. Tubal ligation, scoliosis. TECHNIQUE CT abdomen and pelvis performed without administration of oral or intravenous contrast. This CT exam was performed with one or more of the following radiation dose reduction techniques: automatic exposure control, adjustment of mA and/or kV according to patient size, and iterative reconstruction. COMPARISON No comparisons. FINDINGS Centrilobular emphysema lung bases. Correlate with risk factors. Calcified granuloma left lung base. Inferior heart and pericardium unremarkable. Liver, gallbladder, spleen notable for calcified splenic granulomata. Pancreas normal. Adrenal glands normal. No hydronephrosis or nephrolithiasis. No perinephric or periureteral inflammatory change. The distal ureters are difficult to follow throughout their course due to their decompressed state. There are multiple pelvic calcifications bilaterally which given the absence of any ureteral dilatation are strongly favored to be phleboliths. No renal cystic or solid mass lesion is suggested on noncontrast enhanced imaging. CT PELVIS: No inguinal adenopathy. The urinary bladder is normal to low in volume. No focal bladder wall abnormality or perivesical inflammatory change. The uterus and right adnexa unremarkable. There is a dominant left ovarian cyst measuring about 2.7 cm in diameter. It is favored to be STS. [facility] A Service of [facility] & [facility] RADIOLOGY TEXT RESULTS PATIENT: OBED EUBANKS LOCATION: [facility] : 77 UNIT #: [id number] AGE: [address]: Nate Dale MD SEX: F ORDER DR: a dominant follicle for this menstrual cycle. There is no free fluid in the pelvis. No pelvic or retroperitoneal adenopathy. The distal esophagus, stomach, small bowel are unremarkable. Status post appendectomy by history. Colon unremarkable. Aorta normal in caliber. Degenerative changes in the spine without acute appearing bony abnormality. Posterior disc bulge L5-S1 with mass effect on thecal sac and right lateral recess. Correlate that the descending right S1 dermatomal symptoms. IMPRESSION 1. The kidneys are normal in appearance. There is no evidence of renal inflammatory change and there are no secondary signs of recent stone passage. No ureteral dilatation. The distal ureters are very difficult to visualize throughout their course due to their decompressed state. There are multiple calcifications in the deep pelvis bilaterally which given the lack of any ureteral abnormality are strongly favored to be phleboliths. 2. Patient gives a history of inability to void. The urinary bladder is normal to low in volume with no focal abnormalities seen and no perivesical inflammatory change. 3. 2.7 cm left ovarian cyst likely the dominant follicle for this menstrual cycle. 4. Alimentary canal normal. Patient is status post appendectomy by history. 5. Mild centrilobular emphysema lung bases. Correlate with risk factors. 6. Degenerative changes in the spine. Posterior central and right paracentral disc bulge L5-S1 with some mass effect on the right lateral recess and thecal sac. Correlate with any descending right S1 dermatomal symptoms. Dictated by... Jarrett Thurman M.D. THIS IS AN ELECTRONICALLY VERIFIED REPORT Jarrett Thurman M.D. at 12/29/2016 12:58 PM Ayan TD: 12/27/2016 21:00 JOB #: [id number] MEDICAL IMAGING REPORT Page 1 of 1 COPY
[2016-12-26 17:15] LABS: URINE SOURCE CLEAN CATCH
[2016-12-26 17:23] LABS: URINE APPEARANCE CLEAR; URINE BILIRUBIN NEG (NEG); URINE BLOOD 3+ (NEG); URINE COLOR YELLOW; URINE GLUCOSE NEG (NEG); URINE KETONE TRACE (NEG); URINE LEUKOCYTE ESTERASE 1+ (NEG); URINE NITRATE NEG (NEG); URINE PROTEIN TRACE (NEG); URINE SPECIFIC GRAVITY 1.024 (1.003-1.035)
[2016-12-26 17:26] LABS: URBCS1 AUWI 100-200 /[HPF] (0-2); URINE BACTERIA AUWI NEG (NEGATIVE); URINE SQUAMOUS EPITHELIAL CELL OCC /[HPF]
[2016-12-26 17:42] LABS: CULTURE INDICATED? NO
== END 2016-12-26 19:02 | disposition home or self-care (01) ==
LOC: CED 16:34
PROVIDERS: Emergency Medicine
DX: R31.9 Hematuria, unspecified (principal); J44.9 Chronic obstructive pulmonary disease, unspecified; F17.200 Nicotine dependence, unspecified, uncomplicated; Z88.8 Allergy status to other drugs, medicaments and biological substances; Z91.013 Allergy to seafood
CPT/HCPCS: 74176; 81003; 99284